=== PATIENT | male | born 1965 | race Caucasian/White ===

== ENCOUNTER 2016-07-28 15:33 | Inpatient (IN) | payer BC ==
[~2016-07-28] VITALS: Ht 188 cm; Wt 148.8 kg
[2016-07-28] MEDS ORDERED: ASPIRIN 81 MG TAB.CHEW PO ONE (16:00)
--- NOTE | 2016-07-28 16:00 | EKG ---
[facility] [address] [place] [address] Test Date: 2016-07-28 Test Time: 15:55:58 Pat Name: VICK CARR Department: Room: Gender: M Market Research Coordinator: : 1965 Requested By: STAFF NON Order Number: [id number] Reading MD: Measurements Intervals [place] Rate: 96 P: 34 MN: 170 QRS: 45 QRSD: 96 T: 54 QT: 360 QTc: 462 Interpretive Statements SINUS RHYTHM QRS(T) CONTOUR ABNORMALITY CONSIDER INFERIOR MYOCARDIAL DAMAGE POSSIBLY ABNORMAL ECG RI6.01 No previous ECG available for comparison
--- NOTE | 2016-07-28 16:18 | RAD ---
Portable AP upright view CXR: Clinical indications: Chest pain. Findings: A small granuloma of the right upper lobe is seen. No acute lung infiltrate or pleural effusion or pulmonary edema or lung mass or pneumothorax is seen. The heart size, pulmonary vasculature, mediastinum and both chelo are unremarkable. Impression: No acute radiographic abnormality is seen.
[2016-07-28 16:20] LABS: BASO # 0.1 x10^3/uL (0.0-0.2); BASO % 1 % (0-3); EOS % 3 % (0-3); HEMATOCRIT 43.2 % (39.0-53.0); HEMOGLOBIN 14.6 g/dL (13.0-17.5); LYMPH # 2.9 x10^3/uL (1.0-4.8); LYMPH % 32 % (24-48); MEAN CORPUSCULAR HEMOGLOBIN 29 pg (25-35); MEAN CORPUSCULAR HGB CONC 34 g/dL (31-37); MEAN CORPUSCULAR VOLUME 86 fL (79-100); MONO % 5 % (0-9); NEUT % 59 % (31-73); PLATELET COUNT 172 x10^3/uL (140-400); RED BLOOD COUNT 5.04 x10^6/uL (4.30-5.70); RED CELL DISTRIBUTION WIDTH 14.5 % (11.5-14.5); WHITE BLOOD COUNT 9.2 x10^3/uL (4.0-11.0)
[2016-07-28 16:31] LABS: CALCIUM 8.6 mg/dL (8.5-10.1); CREATININE 0.9 mg/dL (0.7-1.3); GFR 89.3; INR 2.5 (0.8-1.1); POTASSIUM 3.6 mmol/L (3.5-5.1); PROTHROMBIN TIME PATIENT 25.8 SEC (11.7-14.0)
[2016-07-28 16:37] LABS: ALBUMIN 3.3 g/dL (3.4-5.0); DIRECT BILIRUBIN 0.1 mg/dL (0.0-0.2); MAGNESIUM 1.9 mg/dL (1.8-2.4); TOTAL BILIRUBIN 0.3 mg/dL (0.2-1.0); TOTAL PROTEIN 7.3 g/dL (6.4-8.2)
[2016-07-28 16:54] LABS: CKMB INDEX 1.5 % (0-4); CKMB MASS 4.6 ng/mL (0.0-3.6)
--- NOTE | 2016-07-28 17:59 | PHYS DOC ---
Past Medical History Past Medical History: DVT, High Cholesterol, Hypertension, Other Additional Past Medical Histor: protein S deficiency, PE's, cat scratch fever Past Surgical History: Tonsillectomy Alcohol Use: None Drug Use: None Adult General Chief Complaint Chief Complaint: chest pain HPI HPI Patient is a 51 year old male who drove himself to the ED from his primary care doctor's office with the complaint of chest pressure which occurred earlier today and is now gone. The patient was awake and headed to work this morning at 5 AM when he developed a pressure heaviness across the middle of his chest. Both of his arms seem like they just lost strength. This lasted a few hours, he did go ahead and go to work, then he ended up leaving work and he drove to Dr. Salas office. He works as a aircraft sheet metal mechanic. At this time, his chest pressure is gone. Patient has a history of protein S deficiency and blood clots. He takes warfarin 15 mg a day. He is treated for hypertension that sometimes he forgets to take his medicine. He takes it at night because it makes him dizzy. Negative diabetes. He does smoke. PCP Dr. Salas Review of Systems Review of Systems Constitutional: Denies fever or chills [] Eyes: Denies change in visual acuity, redness, or eye pain [] HENT: Denies nasal congestion or sore throat [] Respiratory: Denies cough or shortness of breath [] Cardiovascular: As in history of present illness GI: Denies abdominal pain, nausea, vomiting, bloody stools or diarrhea [] : Denies dysuria or hematuria [] Musculoskeletal: Denies back pain or joint pain [] Integument: Denies rash or skin lesions [] Neurologic: Denies headache, focal weakness or sensory changes [] Current Medications Current Medications Current Medications Medications (Trade) Dose Ordered Sig/Katharine Start Time Stop Time Status Last Admin Dose Admin Aspirin (Children'S Aspirin) 324 mg 1X ONCE 07/28/16 16:00 07/28/16 16:02 DC 07/28/16 16:18 324 MG Allergies Allergies Allergies Coded Allergies Type Severity Reaction Last Updated Verified No Known Drug Allergies 07/28/16 No Physical Exam Physical Exam Constitutional: Well developed, well nourished, no acute distress, non-toxic appearance. Alert, mentating normally, good color. HENT: Normocephalic, atraumatic, bilateral external ears normal, nose normal. [ ] Eyes: conjunctiva normal, no discharge. [] Neck: Normal range of motion, no stridor. [] Cardiovascular:Heart rate regular rhythm, no murmur [] Lungs & Thorax: Bilateral breath sounds clear to auscultation [] Abdomen: Bowel sounds normal, soft, no tenderness, no masses, no pulsatile masses. [] Skin: Warm, dry, no erythema, no rash. [] Extremities: No tenderness, no cyanosis, no clubbing, ROM intact, no edema. [] Neurologic: Alert and oriented X 3, normal motor function, normal sensory function, no focal deficits noted. [] Current Patient Data Vital Signs Vital Signs Date Time Temp Pulse Resp B/P Pulse Ox O2 Delivery O2 Flow Rate FiO2 07/28/16 15:55 99.1 95 24 158/83 98 Room Air 99.1 Lab Values Laboratory Tests Test 07/28/16 16:08 White Blood Count 9.2x10^3/uL (4.0-11.0) Red Blood Count 5.04x10^6/uL (4.30-5.70) Hemoglobin 14.6g/dL (13.0-17.5) Hematocrit 43.2% (39.0-53.0) Mean Corpuscular Volume 86fL (79-100) Mean Corpuscular Hemoglobin 29pg (25-35) Mean Corpuscular Hemoglobin Concent 34g/dL (31-37) Red Cell Distribution Width 14.5% (11.5-14.5) Platelet Count 172x10^3/uL (140-400) Neutrophils (%) (Auto) 59% (31-73) Lymphocytes (%) (Auto) 32% (24-48) Monocytes (%) (Auto) 5% (0-9) Eosinophils (%) (Auto) 3% (0-3) Basophils (%) (Auto) 1% (0-3) Neutrophils # (Auto) 5.5x10^3uL (1.8-7.7) Lymphocytes # (Auto) 2.9x10^3/uL (1.0-4.8) Monocytes # (Auto) 0.5x10^3/uL (0.0-1.1) Eosinophils # (Auto) 0.3x10^3/uL (0.0-0.7) Basophils # (Auto) 0.1x10^3/uL (0.0-0.2) Prothrombin Time 25.8SEC (11.7-14.0) H Prothrombin Time INR 2.5 (0.8-1.1) H Sodium Level 142mmol/L (136-145) Potassium Level 3.6mmol/L (3.5-5.1) Chloride Level 104mmol/L (98-107) Carbon Dioxide Level 30mmol/L (21-32) Anion Gap 8 (6-14) Blood Urea Nitrogen 13mg/dL (8-26) Creatinine 0.9mg/dL (0.7-1.3) Estimated GFR (Cockcroft-Gault) 89.3 Glucose Level 126mg/dL (70-99) H Calcium Level 8.6mg/dL (8.5-10.1) Magnesium Level 1.9mg/dL (1.8-2.4) Total Bilirubin 0.3mg/dL (0.2-1.0) Direct Bilirubin 0.1mg/dL (0.0-0.2) Aspartate Amino Transferase (AST) 43U/L (15-37) H Alanine Aminotransferase (ALT) 22U/L (16-63) Alkaline Phosphatase 81U/L (46-116) Creatine Kinase 306U/L (39-308) Creatine Kinase MB (Mass) 4.6ng/mL (0.0-3.6) H Creatine Kinase MB Relative Index 1.5% (0-4) Troponin I Quantitative 0.031ng/mL (0.000-0.055) NU-Dza-S-Type Natriuretic Peptide 590pg/mL (0-124) H Total Protein 7.3g/dL (6.4-8.2) Albumin 3.3g/dL (3.4-5.0) L Laboratory Tests 07/28/16 16:08 Laboratory Tests 07/28/16 16:08 EKG EKG 12-lead EKG read by me. Sinus rhythm. Heart rate 96. There are no acute ST or T wave changes indicative of ischemia or infarction. No STEMI. 1555 I also reviewed EKG sent from Dr. Salas office with the patient. One is an old EKG dated 03/31/2016. Sinus rhythm. Heart rate 83. Normal EKG without ST or T wave changes. The second is an EKG from today, at 1401 hrs. Sinus rhythm. There are no acute ST or T wave changes indicative of ischemia or infarction. No STEMI. Believe today's office EKG shows significant cardiac ischemia. [] Radiology/Procedures Radiology/Procedures One view portable chest x-ray read by the radiologist. No acute abnormality. [] Course & Med Decision Making Course & Med Decision Making Pertinent Labs and Imaging studies reviewed. (See chart for details) 51-year-old male who has hypertension and is a smoker presents with chest heaviness earlier today that sounds very concerning for possible angina. The patient is symptom-free on arrival to the ED. I advised the patient that he does need to be hospitalized for further cardiac evaluation and he is agreeable to that plan. EKG, chest x-ray, and labs were initiated. Note the patient also has protein S deficiency and takes warfarin daily for that. I believe that's unrelated to his presentation. The patient remained stable in the ED. I discussed the case with Dr. burnham, [facility], who will admit the patient. I wrote bridge orders. [] Dragon Disclaimer Dragon Disclaimer This electronic medical record was generated, in whole or in part, using a voice recognition dictation system. Departure Departure Impression: Primary Impression: Chest pain Disposition: 09 ADMITTED INPATIENT Admitting Physician: Ashley Burnham Condition: STABLE Referrals: JANEEN SALAS MD (PCP) SEBASTIEN RUBIO MD Jul 28, 2016 17:59
[2016-07-28 19:30] VITALS: BP 133/73
[2016-07-28] MEDS ORDERED: POTASSIUM CHLORIDE 20 MEQ TABLET.ER. PO ONE (19:30)
[2016-07-28] MEDS ORDERED: NICOTINE 14MG PATCH. TD PRN (19:45)
[2016-07-28] MEDS ORDERED: IBUPROFEN 800 MG TABLET. PO PRN (19:45)
[2016-07-28] MEDS ORDERED: TRAMADOL 50 MG TABLET. PO PRN (19:45)
[2016-07-28] MEDS ORDERED: NICOTINE POLACRILEX 2MG GUM PACKAGE of 12. BC PRN (19:45)
--- NOTE | 2016-07-28 19:47 | PDOC1 ---
History and Physical Date of Admission Date of Admission DATE: 07/28/16 TIME: 19:40 History of Present Illness History of Present Illness Mr. Dunn is a 51 year old male admit from ED for chest pressure and left arm numbness and weakness sent to ER by Dr. Bosch for above symptoms. 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 Cardiovascular: No pertinent hx, HTN GI: No pertinent hx Heme/Onc: No pertinent hx Past Surgical History Past Surgical History: No pertinent history Family History Family History: No Significant Social History Smoke: <1 pack per day ALCOHOL: none Drugs: None Current Problem List Problem List Problems Medical Problems: (1) Chest pain Status: Acute Problems: Current Medications Current Medications Current Medications Aspirin (Children'S Aspirin) 324 mg 1X ONCE PO Last administered on 07/28/16t 16:18; Start 07/28/16 at 16:00; Stop 07/28/16 at 16:02; Status DC Allergies Allergies: Coded Allergies: No Known Drug Allergies (Unverified , 07/28/16) ROS General: No: Appetite, Chills, Fatigue, Malaise, Night Sweats, Other PSYCHOLOGICAL ROS: No: Anxiety, Behavioral Disorder, Concentration difficultie , Decreased libido, Depression, Disorientation, Hallucinations, Hostility, Irritablity, Memory difficulties, Mood Swings, Obsessive thoughts, Other, Physical abuse, Sexual abuse, Sleep disturbances, Suicidal ideation Eyes: No Blurry vision, No Decreased vision, No Double vision, No Dry eyes, No Excessive tearing, No Eye Pain, No Itchy Eyes, No Loss of vision, No Other, No Photophobia, No Scotomata, No Uses contacts, No Uses glasses HEENT: No: Epistaxis, Heacaches, Hearing change, Nasal congestion, Nasal discharge, Oral lesions, Other, Sinus pain, Sneezing, Snoring, Sore Throat, Tinnitus, Vertigo, Visual Changes, Vocal changes Respiratory: No: Cough, Hemoptysis, Orthopnea, Other, Pleuritic Pain, SOB with excertion, Shortness of breath, Sputum Changes, Stridor, Tachypnea, Wheezing Cardiovascular: yes Other (pressure, ), No Chest Pain, No Edema, No Lt Headedness, No Orthopnea, No Palpitations, No Paroxysmal Noc. Dyspnea Gastrointestinal: No Abdominal Pain, No Constipation, No Diarrhea, No Hematochezia, No Melena, No Nausea, No Other, No Vomiting Genitourinary: No , No , No , No , No , No , No , No Discharge, No Dysuria, No Flank Pain, No Frequency, No Hematuria, No Incontinence, No Other, No Pain, No Retention, No Urgency Musculoskeletal: No Gait Disturbance, No Joint Pain, No Joint Stiffness, No Joint Swelling, No Muscle Pain, No Muscular Weakness, No Other, No Pain In:, No Swelling In: Neurological: No Behavorial Changes, No Bowel/Bladder ControlChng, No Confusion , No Dizziness, No Gait Disturbance, No Headaches, No Impaired Coord/balance, No Memory Loss, No Numbness/Tingling, No Other, No Seizures, No Speech Problems , No Tremors, No Visual Changes, No Weakness Physical Exam General: Alert, Oriented X3, Cooperative, No acute distress HEENT: Atraumatic, PERRLA, EOMI Lungs: Clear to auscultation, Normal air movement Heart: S1S2, no murmurs Abdomen: Normal bowel sounds, Soft Extremities: No clubbing Skin: No rashes, No breakdown, Other (sclerotic lesions to elbow and knee, ) Neuro: Normal gait, Normal speech, Normal tone, Sensation intact Psych/Mental Status: Mood NL Vitals Vitals Vital Signs Date Time Temp Pulse Resp B/P Pulse Ox O2 Delivery O2 Flow Rate FiO2 07/28/16 18:27 94 24 164/82 96 Room Air 07/28/16 15:55 99.1 99.1 Labs Labs Laboratory Tests Test 07/28/16 16:08 White Blood Count 9.2x10^3/uL (4.0-11.0) Red Blood Count 5.04x10^6/uL (4.30-5.70) Hemoglobin 14.6g/dL (13.0-17.5) Hematocrit 43.2% (39.0-53.0) Mean Corpuscular Volume 86fL (79-100) Mean Corpuscular Hemoglobin 29pg (25-35) Mean Corpuscular Hemoglobin Concent 34g/dL (31-37) Red Cell Distribution Width 14.5% (11.5-14.5) Platelet Count 172x10^3/uL (140-400) Neutrophils (%) (Auto) 59% (31-73) Lymphocytes (%) (Auto) 32% (24-48) Monocytes (%) (Auto) 5% (0-9) Eosinophils (%) (Auto) 3% (0-3) Basophils (%) (Auto) 1% (0-3) Neutrophils # (Auto) 5.5x10^3uL (1.8-7.7) Lymphocytes # (Auto) 2.9x10^3/uL (1.0-4.8) Monocytes # (Auto) 0.5x10^3/uL (0.0-1.1) Eosinophils # (Auto) 0.3x10^3/uL (0.0-0.7) Basophils # (Auto) 0.1x10^3/uL (0.0-0.2) Prothrombin Time 25.8SEC (11.7-14.0) Prothromb Time International Ratio 2.5 (0.8-1.1) Sodium Level 142mmol/L (136-145) Potassium Level 3.6mmol/L (3.5-5.1) Chloride Level 104mmol/L (98-107) Carbon Dioxide Level 30mmol/L (21-32) Anion Gap 8 (6-14) Blood Urea Nitrogen 13mg/dL (8-26) Creatinine 0.9mg/dL (0.7-1.3) Estimated GFR (Cockcroft-Gault) 89.3 Glucose Level 126mg/dL (70-99) Calcium Level 8.6mg/dL (8.5-10.1) Magnesium Level 1.9mg/dL (1.8-2.4) Total Bilirubin 0.3mg/dL (0.2-1.0) Direct Bilirubin 0.1mg/dL (0.0-0.2) Aspartate Amino Transf (AST/SGOT) 43U/L (15-37) Alanine Aminotransferase (ALT/SGPT) 22U/L (16-63) Alkaline Phosphatase 81U/L (46-116) Creatine Kinase 306U/L (39-308) Creatine Kinase MB (Mass) 4.6ng/mL (0.0-3.6) Creatine Kinase MB Relative Index 1.5% (0-4) Troponin I Quantitative 0.031ng/mL (0.000-0.055) UP-Rju-A-Type Natriuretic Peptide 590pg/mL (0-124) Total Protein 7.3g/dL (6.4-8.2) Albumin 3.3g/dL (3.4-5.0) Laboratory Tests Test 07/28/16 16:08 White Blood Count 9.2x10^3/uL (4.0-11.0) Red Blood Count 5.04x10^6/uL (4.30-5.70) Hemoglobin 14.6g/dL (13.0-17.5) Hematocrit 43.2% (39.0-53.0) Mean Corpuscular Volume 86fL (79-100) Mean Corpuscular Hemoglobin 29pg (25-35) Mean Corpuscular Hemoglobin Concent 34g/dL (31-37) Red Cell Distribution Width 14.5% (11.5-14.5) Platelet Count 172x10^3/uL (140-400) Neutrophils (%) (Auto) 59% (31-73) Lymphocytes (%) (Auto) 32% (24-48) Monocytes (%) (Auto) 5% (0-9) Eosinophils (%) (Auto) 3% (0-3) Basophils (%) (Auto) 1% (0-3) Neutrophils # (Auto) 5.5x10^3uL (1.8-7.7) Lymphocytes # (Auto) 2.9x10^3/uL (1.0-4.8) Monocytes # (Auto) 0.5x10^3/uL (0.0-1.1) Eosinophils # (Auto) 0.3x10^3/uL (0.0-0.7) Basophils # (Auto) 0.1x10^3/uL (0.0-0.2) Prothrombin Time 25.8SEC (11.7-14.0) Prothromb Time International Ratio 2.5 (0.8-1.1) Sodium Level 142mmol/L (136-145) Potassium Level 3.6mmol/L (3.5-5.1) Chloride Level 104mmol/L (98-107) Carbon Dioxide Level 30mmol/L (21-32) Anion Gap 8 (6-14) Blood Urea Nitrogen 13mg/dL (8-26) Creatinine 0.9mg/dL (0.7-1.3) Estimated GFR (Cockcroft-Gault) 89.3 Glucose Level 126mg/dL (70-99) Calcium Level 8.6mg/dL (8.5-10.1) Magnesium Level 1.9mg/dL (1.8-2.4) Total Bilirubin 0.3mg/dL (0.2-1.0) Direct Bilirubin 0.1mg/dL (0.0-0.2) Aspartate Amino Transf (AST/SGOT) 43U/L (15-37) Alanine Aminotransferase (ALT/SGPT) 22U/L (16-63) Alkaline Phosphatase 81U/L (46-116) Creatine Kinase 306U/L (39-308) Creatine Kinase MB (Mass) 4.6ng/mL (0.0-3.6) Creatine Kinase MB Relative Index 1.5% (0-4) Troponin I Quantitative 0.031ng/mL (0.000-0.055) RB-Gfn-F-Type Natriuretic Peptide 590pg/mL (0-124) Total Protein 7.3g/dL (6.4-8.2) Albumin 3.3g/dL (3.4-5.0) VTE Prophylaxis Ordered VTE Prophylaxis Devices: No VTE Pharmacological Prophylaxi: Yes Assessment/Plan Assessment/Plan Chest pressure, left arm symptoms, angina, acute R./o ACS, check lipdis Hx DVt, coagulopathy, protein S deficient, coumadin 15mg daily, INR 2.5 htn, he is unsure of what BP med he takes at home obesity, BMI 43 tobaccoism, benefit of cessation skin lesions, consult road advisor for possible enzyme debridement MANI REINOSO MD Jul 28, 2016 19:47
[2016-07-28] MEDS ORDERED: IBUP-1060 PO (20:08)
[2016-07-28] MEDS ORDERED: LISI1TAB5 PO (20:08)
[2016-07-28] MEDS ORDERED: WARF10TA PO (20:08)
[2016-07-28] MEDS: MINERAL OIL/PETROLATUM TOPICAL CREAM 113GM JAR. TP SCH (21:12)
[2016-07-28] MEDS: METOPROLOL TART IMMED RELEASE 25 MG TABLET PO SCH (21:17)
[2016-07-28] MEDS: WARFARIN 5 MG TABLET. PO SCH (21:18)
--- NOTE | 2016-07-28 22:19 | ACF ---
Admission Forms Criteria CHEST PAIN Clinical Indications for Admission to Inpatient Care (Place 'X' for any and all applicable criteria): Admission is indicated for chest pain and ANY ONE of the following(1)(2)(3)(4)(5 ): [X]I. Angina with acute coronary syndrome (Also use Myocardial Infarction or Angina guideline) [ ]II. Hemodynamic instability [ ]III. Angina needing acute intervention as indicated by ALL of the following( 11)(12): [ ]a) Unstable angina is present as indicated by angina that is ANY ONE of the following: [ ]i) New onset [ ]ii) Nocturnal [ ]iii) Prolonged at rest [ ]iv) Progressive [ ]b) Angina warrants acute intervention as indicated by ANY ONE of the following: [ ]i) Recurrent angina (e.g, not responding as previously to treatment) [ ]ii) Angina at rest or with low-level activities despite initial medical therapy [ ]iii) New or presumably new ST-segment depression on ECG [ ]iv) Signs or symptoms of heart failure (eg, dyspnea, pulmonary edema) [ ]v) New or worsening mitral regurgitation [ ]vi) Hemodynamic instability [ ]vii) Dangerous arrhythmia (eg, sustained ventricular tachycardia) [ ]viii) History of percutaneous coronary intervention within 6 months [ ]ix) History of coronary artery bypass graft surgery [ ]x) [place] risk score of 2 or greater[A] [ ]xi) History of Diabetes(14) [ ]xii) High-risk cardiac ischemia findings on noninvasive testing (e.g, echocardiogram, treadmill testing, nuclear scan) [ ]xiii) Chronic renal insufficiency (ie, estimated GFR less than 60 mL/min/1.732m) [ ]xiv) Left ventricular ejection fraction less than 40% [ ]IV. Evidence of WI (eg, cardiac biomarkers positive, ST-segment elevation on ECG) also use Myocardial Infarction Criteria Form. [ ]V. Pulmonary edema [ ]. Respiratory distress [ ]VII. Chest pain indicative of serious diagnosis other than coronary artery disease (eg, aortic dissection) [ ]VIII. Contraindications and/or Inappropriate clinical situations for Observational Care in patients with Chest Pain, when ANY ONE of the following is required: [ ]a) Patient with risk factor for pulmonary embolism, acute coronary syndrome and myocardial infarction (18) [ ]b) Patient with Pulmonary embolism require an average LOS of 4.3 days, therefore emergency department observation management is inappropriate 18,23 [ ]c) Painful condition/s in the elderly, have the highest rate of recidivism after emergency department observation management (10.8%) 20,21,22 [ ]d) Elevated cardiac biomarker requires intensive and exhaustive care (19) [ ]IX. General contraindications and/or Inappropriate clinical situations for Observational Care in patients with Chest Pain, when ANY ONE of the following is required: [ ]a) Prediction of prolongation of LOS based on ANY ONE of the following may be considered as a contraindication for observational care 2, 3, 4, 5, 6, 7, 8, 9, 10, 11 [ ]i) Age > 65 yrs. [ ]ii) Patient arriving by ambulance [ ]iii) Patient with high acuity [ ]iv) Patient requiring vital sign monitoring [ ]v) Patient on IV medication [ ]b) Systolic blood pressures 180mmHg 3,12 [ ]c) Patient with altered mental status including delirium and other alteration of consciousness, (3) [ ]d) Patient whose discharge disposition will be to a group home home or rehabilitation home should not be managed in Emergency Department Observation Unit. CMS rule requires 3 days hospital stay before such placement. 3,13 [ ]e) Patient with failure to thrive due to broad array of etiologies 3,16,17 [ ]f) Inability to ambulate 3,14 Extended stay beyond goal length of stay may be needed for (1)(28): [ ]a) Specific condition diagnosed after evaluation (eg, pulmonary embolism, aortic dissection) [ ]b) Unstable angina [ ]c) Continued suspicion of acute coronary syndrome with inability to complete needed cardiac evaluation (eg, patient clinically unable to undergo stress testing) [ ]d) Myocardial infarction (Contents from ANGINA and CHEST PAIN clinical indications for admission to inpatient care have been integrated in this form) The original [employer] [employer] content created by [employer] has been revised. The portions of the content which have been revised are identified through the use of italic text or in bold, and [employer] [facility] has neither reviewed nor approved the modified material. All other unmodified content is copyright [employer] [employer] Please see references footnoted in the original [facility] [employer] edition 2016 Admission Criteria Met?: Yes MARTIN CHOW Jul 28, 2016 22:19
[2016-07-28 23:00] VITALS: BP 171/99
[2016-07-29 04:00] VITALS: BP 196/106
[2016-07-29] MEDS: METOPROLOL TART IMMED RELEASE 25 MG TABLET PO SCH (05:03)
[2016-07-29 05:58] LABS: BASO # 0.1 x10^3/uL (0.0-0.2); BASO % 1 % (0-3); EOS % 3 % (0-3); LYMPH # 2.2 x10^3/uL (1.0-4.8); LYMPH % 27 % (24-48); MEAN CORPUSCULAR HEMOGLOBIN 28 pg (25-35); MEAN CORPUSCULAR HGB CONC 33 g/dL (31-37); MEAN CORPUSCULAR VOLUME 85 fL (79-100); MONO % 6 % (0-9); NEUT % 64 % (31-73); PLATELET COUNT 151 x10^3/uL (140-400); RED BLOOD COUNT 4.92 x10^6/uL (4.30-5.70); RED CELL DISTRIBUTION WIDTH 14.7 % (11.5-14.5); WHITE BLOOD COUNT 8.3 x10^3/uL (4.0-11.0)
[2016-07-29] MEDS ORDERED: HYDROCHLOROTHIAZIDE 12.5 MG CAPSULE. PO ONE (06:00)
[2016-07-29] MEDS ORDERED: LISINOPRIL 20 MG TABLET PO ONE (06:00)
[2016-07-29 06:13] LABS: INR 2.4 (0.8-1.1); PROTHROMBIN TIME PATIENT 24.9 SEC (11.7-14.0)
[2016-07-29 06:23] LABS: ALBUMIN 3.2 g/dL (3.4-5.0); ALBUMIN/GLOBULIN RATIO 0.9 (1.0-1.7); CALCIUM 8.3 mg/dL (8.5-10.1); CHOLESTEROL/HDL RATIO 7.6; CREATININE 0.7 mg/dL (0.7-1.3); GFR 119.4; POTASSIUM 4.4 mmol/L (3.5-5.1); TOTAL BILIRUBIN 0.4 mg/dL (0.2-1.0); TOTAL PROTEIN 6.7 g/dL (6.4-8.2)
[2016-07-29 07:30] VITALS: BP 161/93
[2016-07-29] MEDS ORDERED: hydrALAZINE 20 MG/ML VIAL. IVP ONE (07:45)
[2016-07-29] MEDS ORDERED: NON FORMULARY ITEM (Lisinopril/Hydrochlorothiazide (Lisinopril-Hctz 20-12.5 Mg Tab) 1 TAB) PO SCH (09:00)
--- NOTE | 2016-07-29 09:18 | PDOC2 ---
ROYCE TALBERT PODIATRIST ASSISTANT 07/29/16 0918: CARDIAC CONSULT DATE OF CONSULT Date of Consult DATE: 07/29/16 TIME: 09:14 REASON FOR CONSULT Reason for Consult: Chest Pain REFERRING PHYSICIAN Referring Physician: Dr. Burgos SOURCE Source: Chart review, Patient HISTORY OF PRESENT ILLNESS HISTORY OF PRESENT ILLNESS This is a 51 yo male who presented with complaints of chest pressure. Patient reports he was driving to work yesterday morning and developed central chest pressure. Proceeded to work, pressure worsened and developed bilateral upper ext weakness, so he decided to go to Urgent Care at his PCP office. Was seen and sent to ED for further evaluation. No exacerbating or relieving factors. Symptoms resolved without intervention prior to arrival. Pressure associated with shortness of breath. Denies any palpitations, dizziness, diaphoresis, or nausea/vomiting. No recent illness or fevers. H/o of HTN and reports noncompliance with medications; may take 2 or 3 times per week. 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 No previous cardiac workup or cardiology evaluation. Additional h/o DEBBIE but does not use CPAP. O2 saturation dropped into 70's overnight and was placed on NC. PAST MEDICAL HISTORY Cardiovascular: HTN, Hyperlipidemia Pulmonary: Other (DEBBIE) CENTRAL NERVOUS SYSTEM: Other (no pertinent hx) GI: No pertinent hx Heme/Onc: No pertinent hx, Other (DVT) Hepatobiliary: No pertinent hx Psych: No pertinent hx Musculoskeletal: Osteoarthritis Infectious disease: No pertinent hx ENT: No pertinent hx Renal/: No pertinent hx Endocrine: No pertinent hx Dermatology: No pertinent hx PAST SURGICAL HISTORY Past Surgical History: Tonsillectomy FAMILY HISTORY Family History: Heart Disease, Other (protein S def) SOCIAL HISTORY Smoke: 1 pack per day ALCOHOL: none Drugs: None Lives: with Family CURRENT MEDICATIONS CURRENT MEDICATIONS Current Medications Medications (Trade) Dose Ordered Sig/Katharine Route PRN Reason Start Time Stop Time Status Last Admin Dose Admin Aspirin (Children'S Aspirin) 324 mg 1X ONCE PO 07/28/16 16:00 07/28/16 16:02 DC 07/28/16 16:18 Potassium Chloride (Klor-Con) 40 meq 1X ONCE PO 07/28/16 19:30 07/28/16 19:31 DC 07/28/16 21:17 Multi-Ingred Cream/Lotion/Oil/ Oint (Hydrocerin) 1 jony BID TP 07/28/16 21:00 07/28/16 21:12 Warfarin Sodium (Coumadin) 15 mg DAILY16 PO 07/28/16 20:00 07/28/16 21:18 Tramadol HCl (Ultram) 50 mg PRN Q6HRS PRN PO PAIN 07/28/16 19:45 07/29/16 05:03 Warfarin Sodium (Coumadin Per Physician) 1 each PRN DAILY PRN MC SEE COMMENTS 07/28/16 19:45 07/29/16 08:48 Metoprolol Tartrate (Lopressor) 25 mg BID PO 07/28/16 21:00 07/29/16 05:03 Hydrochlorothiazide (Microzide) 12.5 mg ONCE ONCE PO 07/29/16 06:00 07/29/16 06:01 DC 07/29/16 05:56 Lisinopril (Prinivil) 20 mg ONCE ONCE PO 07/29/16 06:00 07/29/16 06:01 DC 07/29/16 05:56 Hydralazine HCl (Apresoline) 10 mg 1X ONCE IVP 07/29/16 07:45 07/29/16 07:46 DC 07/29/16 07:59 ALLERGIES ALLERGIES: Coded Allergies: No Known Drug Allergies (Unverified , 07/28/16) ROS Review of System 14 point ROS conducted with pertinent positives noted above in HPI PHYSICAL EXAM General: Alert, Oriented X3, Cooperative HEENT: Atraumatic, Mucous membr. moist/pink Lungs: Clear to auscultation, Normal air movement Heart: Regular rate, Normal S1, Normal S2 Abdomen: Soft, No tenderness Extremities: Normal pulses, Other (1+ RLU edema ) Skin: No breakdown, No significant lesion Neuro: Normal speech, Sensation intact Psych/Mental Status: Mental status NL, Mood NL MUSCULOSKELETAL: Full range of motion without pain VITALS VITALS Vital Signs Date Time Temp Pulse Resp B/P Pulse Ox O2 Delivery O2 Flow Rate FiO2 07/29/16 07:59 70 186/108 07/29/16 07:30 97.5 97.5 07/29/16 04:00 16 99 Nasal Cannula 2.0 LABS Lab: Laboratory Tests Test 07/28/16 16:08 07/29/16 05:28 White Blood Count 9.2x10^3/uL (4.0-11.0) 8.3x10^3/uL (4.0-11.0) Red Blood Count 5.04x10^6/uL (4.30-5.70) 4.92x10^6/uL (4.30-5.70) Hemoglobin 14.6g/dL (13.0-17.5) 14.0g/dL (13.0-17.5) Hematocrit 43.2% (39.0-53.0) 42.0% (39.0-53.0) Mean Corpuscular Volume 86fL (79-100) 85fL (79-100) Mean Corpuscular Hemoglobin 29pg (25-35) 28pg (25-35) Mean Corpuscular Hemoglobin Concent 34g/dL (31-37) 33g/dL (31-37) Red Cell Distribution Width 14.5% (11.5-14.5) 14.7% (11.5-14.5) Platelet Count 172x10^3/uL (140-400) 151x10^3/uL (140-400) Neutrophils (%) (Auto) 59% (31-73) 64% (31-73) Lymphocytes (%) (Auto) 32% (24-48) 27% (24-48) Monocytes (%) (Auto) 5% (0-9) 6% (0-9) Eosinophils (%) (Auto) 3% (0-3) 3% (0-3) Basophils (%) (Auto) 1% (0-3) 1% (0-3) Neutrophils # (Auto) 5.5x10^3uL (1.8-7.7) 5.3x10^3uL (1.8-7.7) Lymphocytes # (Auto) 2.9x10^3/uL (1.0-4.8) 2.2x10^3/uL (1.0-4.8) Monocytes # (Auto) 0.5x10^3/uL (0.0-1.1) 0.5x10^3/uL (0.0-1.1) Eosinophils # (Auto) 0.3x10^3/uL (0.0-0.7) 0.2x10^3/uL (0.0-0.7) Basophils # (Auto) 0.1x10^3/uL (0.0-0.2) 0.1x10^3/uL (0.0-0.2) Prothrombin Time 25.8SEC (11.7-14.0) 24.9SEC (11.7-14.0) Prothromb Time International Ratio 2.5 (0.8-1.1) 2.4 (0.8-1.1) Sodium Level 142mmol/L (136-145) 141mmol/L (136-145) Potassium Level 3.6mmol/L (3.5-5.1) 4.4mmol/L (3.5-5.1) Chloride Level 104mmol/L (98-107) 104mmol/L (98-107) Carbon Dioxide Level 30mmol/L (21-32) 30mmol/L (21-32) Anion Gap 8 (6-14) 7 (6-14) Blood Urea Nitrogen 13mg/dL (8-26) 11mg/dL (8-26) Creatinine 0.9mg/dL (0.7-1.3) 0.7mg/dL (0.7-1.3) Estimated GFR (Cockcroft-Gault) 89.3 119.4 Glucose Level 126mg/dL (70-99) 112mg/dL (70-99) Calcium Level 8.6mg/dL (8.5-10.1) 8.3mg/dL (8.5-10.1) Magnesium Level 1.9mg/dL (1.8-2.4) Total Bilirubin 0.3mg/dL (0.2-1.0) 0.4mg/dL (0.2-1.0) Direct Bilirubin 0.1mg/dL (0.0-0.2) Aspartate Amino Transf (AST/SGOT) 43U/L (15-37) 43U/L (15-37) Alanine Aminotransferase (ALT/SGPT) 22U/L (16-63) 33U/L (16-63) Alkaline Phosphatase 81U/L (46-116) 76U/L (46-116) Creatine Kinase 306U/L (39-308) Creatine Kinase MB (Mass) 4.6ng/mL (0.0-3.6) Creatine Kinase MB Relative Index 1.5% (0-4) Troponin I Quantitative 0.031ng/mL (0.000-0.055) < 0.017ng/mL (0.000-0.055) ZA-Ajx-P-Type Natriuretic Peptide 590pg/mL (0-124) Total Protein 7.3g/dL (6.4-8.2) 6.7g/dL (6.4-8.2) Albumin 3.3g/dL (3.4-5.0) 3.2g/dL (3.4-5.0) BUN/Creatinine Ratio 16 (6-20) Albumin/Globulin Ratio 0.9 (1.0-1.7) Triglycerides Level 150mg/dL (0-150) Cholesterol Level 235mg/dL (0-200) LDL Cholesterol, Calculated 174mg/dL (0-100) VLDL Cholesterol, Calculated 30mg/dL (0-40) HDL Cholesterol 31mg/dL (40-60) Cholesterol/HDL Ratio 7.6 ASSESSMENT/PLAN ASSESSMENT/PLAN 1. Chest Pain troponin series normal- AMI ruled out suspect chest pressure is related to malignant HTN but given history and risk factors, will proceed with MPI to r/o underlying ischemia 2. Malignant hypertension remains elevated increase VIKI BB added hydralazine PRN Will need treatment of DEBBIE 3. Mild NT Pro BNP CXR without pleural fluid. No JVD no overt signs of HF maintain BP control 4. Hyperlipidemia LDL 174 add statin therapy 5. H/o DVT/PE with protein S def. on warfarin INR 2.4 6. DEBBIE needs outpatient sleep study per PCP 7. Noncompliance discussed importance of adherence Problems: STAR ORTIZ MD 07/29/16 1723: CARDIAC CONSULT ALLERGIES ALLERGIES: Coded Allergies: No Known Drug Allergies (Unverified , 07/28/16) ASSESSMENT/PLAN ASSESSMENT/PLAN Patient seen and examined. Agree with ONCOLOGY PATIENT NAVIGATOR's assessment and plan. Chest pain with some typical features. Myocardial infarction ruled out. 2-D echo showed normal LV function without any regional wall motion abnormalities. Lexiscan nuclear stress test (2 day protocol) pending. Titrate antihypertensives for better blood pressure control. Thank you for your consultation. Problems: ROYCE TALBERT APRN Jul 29, 2016 09:18 STAR ORTIZ MD Jul 29, 2016 17:23
[2016-07-29] MEDS ORDERED: LISINOPRIL 10 MG TABLET PO ONE (10:00)
[2016-07-29] MEDS: MINERAL OIL/PETROLATUM TOPICAL CREAM 113GM JAR. TP SCH ×2 (10:27→21:38)
[2016-07-29 10:30] VITALS: BP 152/75
[2016-07-29] MEDS ORDERED: REGADENOSON 0.4 MG/5 ML DISP.SYRIN. IV ONE (10:30)
[2016-07-29] MEDS ORDERED: hydrALAZINE 20 MG/ML VIAL. IVP PRN (10:30)
--- NOTE | 2016-07-29 10:33 | PDOC ---
PROGRESS NOTES Chief Complaint Chief Complaint A/P Chest pain R/O ACS HTN not controlled hx of DVT and PE Plan Stress test pending continue Coumadin prn hydralazine labs reviwed 2 days stress test d/w cardiology History of Present Illness History of Present Illness no chest pain no fever doing better no sob Vitals Vitals Vital Signs Date Time Temp Pulse Resp B/P Pulse Ox O2 Delivery O2 Flow Rate FiO2 07/29/16 10:26 76 151/86 07/29/16 07:30 97.5 97.5 07/29/16 07:30 20 98 Nasal Cannula 2.0 Physical Exam General: Alert, Oriented X3, Cooperative Heart: Regular rate Extremities: No cyanosis, Normal pulses, Other Skin: No rashes, No breakdown, No significant lesion Labs LABS Laboratory Tests Test 07/28/16 16:08 07/29/16 05:28 White Blood Count 9.2x10^3/uL (4.0-11.0) 8.3x10^3/uL (4.0-11.0) Red Blood Count 5.04x10^6/uL (4.30-5.70) 4.92x10^6/uL (4.30-5.70) Hemoglobin 14.6g/dL (13.0-17.5) 14.0g/dL (13.0-17.5) Hematocrit 43.2% (39.0-53.0) 42.0% (39.0-53.0) Mean Corpuscular Volume 86fL (79-100) 85fL (79-100) Mean Corpuscular Hemoglobin 29pg (25-35) 28pg (25-35) Mean Corpuscular Hemoglobin Concent 34g/dL (31-37) 33g/dL (31-37) Red Cell Distribution Width 14.5% (11.5-14.5) 14.7% (11.5-14.5) Platelet Count 172x10^3/uL (140-400) 151x10^3/uL (140-400) Neutrophils (%) (Auto) 59% (31-73) 64% (31-73) Lymphocytes (%) (Auto) 32% (24-48) 27% (24-48) Monocytes (%) (Auto) 5% (0-9) 6% (0-9) Eosinophils (%) (Auto) 3% (0-3) 3% (0-3) Basophils (%) (Auto) 1% (0-3) 1% (0-3) Neutrophils # (Auto) 5.5x10^3uL (1.8-7.7) 5.3x10^3uL (1.8-7.7) Lymphocytes # (Auto) 2.9x10^3/uL (1.0-4.8) 2.2x10^3/uL (1.0-4.8) Monocytes # (Auto) 0.5x10^3/uL (0.0-1.1) 0.5x10^3/uL (0.0-1.1) Eosinophils # (Auto) 0.3x10^3/uL (0.0-0.7) 0.2x10^3/uL (0.0-0.7) Basophils # (Auto) 0.1x10^3/uL (0.0-0.2) 0.1x10^3/uL (0.0-0.2) Prothrombin Time 25.8SEC (11.7-14.0) 24.9SEC (11.7-14.0) Prothromb Time International Ratio 2.5 (0.8-1.1) 2.4 (0.8-1.1) Sodium Level 142mmol/L (136-145) 141mmol/L (136-145) Potassium Level 3.6mmol/L (3.5-5.1) 4.4mmol/L (3.5-5.1) Chloride Level 104mmol/L (98-107) 104mmol/L (98-107) Carbon Dioxide Level 30mmol/L (21-32) 30mmol/L (21-32) Anion Gap 8 (6-14) 7 (6-14) Blood Urea Nitrogen 13mg/dL (8-26) 11mg/dL (8-26) Creatinine 0.9mg/dL (0.7-1.3) 0.7mg/dL (0.7-1.3) Estimated GFR (Cockcroft-Gault) 89.3 119.4 Glucose Level 126mg/dL (70-99) 112mg/dL (70-99) Calcium Level 8.6mg/dL (8.5-10.1) 8.3mg/dL (8.5-10.1) Magnesium Level 1.9mg/dL (1.8-2.4) Total Bilirubin 0.3mg/dL (0.2-1.0) 0.4mg/dL (0.2-1.0) Direct Bilirubin 0.1mg/dL (0.0-0.2) Aspartate Amino Transf (AST/SGOT) 43U/L (15-37) 43U/L (15-37) Alanine Aminotransferase (ALT/SGPT) 22U/L (16-63) 33U/L (16-63) Alkaline Phosphatase 81U/L (46-116) 76U/L (46-116) Creatine Kinase 306U/L (39-308) Creatine Kinase MB (Mass) 4.6ng/mL (0.0-3.6) Creatine Kinase MB Relative Index 1.5% (0-4) Troponin I Quantitative 0.031ng/mL (0.000-0.055) < 0.017ng/mL (0.000-0.055) MR-Ecf-T-Type Natriuretic Peptide 590pg/mL (0-124) Total Protein 7.3g/dL (6.4-8.2) 6.7g/dL (6.4-8.2) Albumin 3.3g/dL (3.4-5.0) 3.2g/dL (3.4-5.0) BUN/Creatinine Ratio 16 (6-20) Albumin/Globulin Ratio 0.9 (1.0-1.7) Triglycerides Level 150mg/dL (0-150) Cholesterol Level 235mg/dL (0-200) LDL Cholesterol, Calculated 174mg/dL (0-100) VLDL Cholesterol, Calculated 30mg/dL (0-40) HDL Cholesterol 31mg/dL (40-60) Cholesterol/HDL Ratio 7.6 Assessment and Plan Assessmemt and Plan Problems Medical Problems: (1) Chest pain Status: Acute Problems: Comment Review of Relevant I have reviewed the following items jaime (where applicable) has been applied. Labs Laboratory Tests Test 07/28/16 00:02 07/28/16 16:08 07/29/16 05:28 Troponin I Quantitative 0.023ng/mL (0.000-0.055) 0.031ng/mL (0.000-0.055) < 0.017ng/mL (0.000-0.055) White Blood Count 9.2x10^3/uL (4.0-11.0) 8.3x10^3/uL (4.0-11.0) Red Blood Count 5.04x10^6/uL (4.30-5.70) 4.92x10^6/uL (4.30-5.70) Hemoglobin 14.6g/dL (13.0-17.5) 14.0g/dL (13.0-17.5) Hematocrit 43.2% (39.0-53.0) 42.0% (39.0-53.0) Mean Corpuscular Volume 86fL (79-100) 85fL (79-100) Mean Corpuscular Hemoglobin 29pg (25-35) 28pg (25-35) Mean Corpuscular Hemoglobin Concent 34g/dL (31-37) 33g/dL (31-37) Red Cell Distribution Width 14.5% (11.5-14.5) 14.7% (11.5-14.5) Platelet Count 172x10^3/uL (140-400) 151x10^3/uL (140-400) Neutrophils (%) (Auto) 59% (31-73) 64% (31-73) Lymphocytes (%) (Auto) 32% (24-48) 27% (24-48) Monocytes (%) (Auto) 5% (0-9) 6% (0-9) Eosinophils (%) (Auto) 3% (0-3) 3% (0-3) Basophils (%) (Auto) 1% (0-3) 1% (0-3) Neutrophils # (Auto) 5.5x10^3uL (1.8-7.7) 5.3x10^3uL (1.8-7.7) Lymphocytes # (Auto) 2.9x10^3/uL (1.0-4.8) 2.2x10^3/uL (1.0-4.8) Monocytes # (Auto) 0.5x10^3/uL (0.0-1.1) 0.5x10^3/uL (0.0-1.1) Eosinophils # (Auto) 0.3x10^3/uL (0.0-0.7) 0.2x10^3/uL (0.0-0.7) Basophils # (Auto) 0.1x10^3/uL (0.0-0.2) 0.1x10^3/uL (0.0-0.2) Prothrombin Time 25.8SEC (11.7-14.0) 24.9SEC (11.7-14.0) Prothromb Time International Ratio 2.5 (0.8-1.1) 2.4 (0.8-1.1) Sodium Level 142mmol/L (136-145) 141mmol/L (136-145) Potassium Level 3.6mmol/L (3.5-5.1) 4.4mmol/L (3.5-5.1) Chloride Level 104mmol/L (98-107) 104mmol/L (98-107) Carbon Dioxide Level 30mmol/L (21-32) 30mmol/L (21-32) Anion Gap 8 (6-14) 7 (6-14) Blood Urea Nitrogen 13mg/dL (8-26) 11mg/dL (8-26) Creatinine 0.9mg/dL (0.7-1.3) 0.7mg/dL (0.7-1.3) Estimated GFR (Cockcroft-Gault) 89.3 119.4 Glucose Level 126mg/dL (70-99) 112mg/dL (70-99) Calcium Level 8.6mg/dL (8.5-10.1) 8.3mg/dL (8.5-10.1) Magnesium Level 1.9mg/dL (1.8-2.4) Total Bilirubin 0.3mg/dL (0.2-1.0) 0.4mg/dL (0.2-1.0) Direct Bilirubin 0.1mg/dL (0.0-0.2) Aspartate Amino Transf (AST/SGOT) 43U/L (15-37) 43U/L (15-37) Alanine Aminotransferase (ALT/SGPT) 22U/L (16-63) 33U/L (16-63) Alkaline Phosphatase 81U/L (46-116) 76U/L (46-116) Creatine Kinase 306U/L (39-308) Creatine Kinase MB (Mass) 4.6ng/mL (0.0-3.6) Creatine Kinase MB Relative Index 1.5% (0-4) OR-Odm-V-Type Natriuretic Peptide 590pg/mL (0-124) Total Protein 7.3g/dL (6.4-8.2) 6.7g/dL (6.4-8.2) Albumin 3.3g/dL (3.4-5.0) 3.2g/dL (3.4-5.0) BUN/Creatinine Ratio 16 (6-20) Albumin/Globulin Ratio 0.9 (1.0-1.7) Triglycerides Level 150mg/dL (0-150) Cholesterol Level 235mg/dL (0-200) LDL Cholesterol, Calculated 174mg/dL (0-100) VLDL Cholesterol, Calculated 30mg/dL (0-40) HDL Cholesterol 31mg/dL (40-60) Cholesterol/HDL Ratio 7.6 Laboratory Tests Test 07/28/16 16:08 07/29/16 05:28 White Blood Count 9.2x10^3/uL (4.0-11.0) 8.3x10^3/uL (4.0-11.0) Red Blood Count 5.04x10^6/uL (4.30-5.70) 4.92x10^6/uL (4.30-5.70) Hemoglobin 14.6g/dL (13.0-17.5) 14.0g/dL (13.0-17.5) Hematocrit 43.2% (39.0-53.0) 42.0% (39.0-53.0) Mean Corpuscular Volume 86fL (79-100) 85fL (79-100) Mean Corpuscular Hemoglobin 29pg (25-35) 28pg (25-35) Mean Corpuscular Hemoglobin Concent 34g/dL (31-37) 33g/dL (31-37) Red Cell Distribution Width 14.5% (11.5-14.5) 14.7% (11.5-14.5) Platelet Count 172x10^3/uL (140-400) 151x10^3/uL (140-400) Neutrophils (%) (Auto) 59% (31-73) 64% (31-73) Lymphocytes (%) (Auto) 32% (24-48) 27% (24-48) Monocytes (%) (Auto) 5% (0-9) 6% (0-9) Eosinophils (%) (Auto) 3% (0-3) 3% (0-3) Basophils (%) (Auto) 1% (0-3) 1% (0-3) Neutrophils # (Auto) 5.5x10^3uL (1.8-7.7) 5.3x10^3uL (1.8-7.7) Lymphocytes # (Auto) 2.9x10^3/uL (1.0-4.8) 2.2x10^3/uL (1.0-4.8) Monocytes # (Auto) 0.5x10^3/uL (0.0-1.1) 0.5x10^3/uL (0.0-1.1) Eosinophils # (Auto) 0.3x10^3/uL (0.0-0.7) 0.2x10^3/uL (0.0-0.7) Basophils # (Auto) 0.1x10^3/uL (0.0-0.2) 0.1x10^3/uL (0.0-0.2) Prothrombin Time 25.8SEC (11.7-14.0) 24.9SEC (11.7-14.0) Prothromb Time International Ratio 2.5 (0.8-1.1) 2.4 (0.8-1.1) Sodium Level 142mmol/L (136-145) 141mmol/L (136-145) Potassium Level 3.6mmol/L (3.5-5.1) 4.4mmol/L (3.5-5.1) Chloride Level 104mmol/L (98-107) 104mmol/L (98-107) Carbon Dioxide Level 30mmol/L (21-32) 30mmol/L (21-32) Anion Gap 8 (6-14) 7 (6-14) Blood Urea Nitrogen 13mg/dL (8-26) 11mg/dL (8-26) Creatinine 0.9mg/dL (0.7-1.3) 0.7mg/dL (0.7-1.3) Estimated GFR (Cockcroft-Gault) 89.3 119.4 Glucose Level 126mg/dL (70-99) 112mg/dL (70-99) Calcium Level 8.6mg/dL (8.5-10.1) 8.3mg/dL (8.5-10.1) Magnesium Level 1.9mg/dL (1.8-2.4) Total Bilirubin 0.3mg/dL (0.2-1.0) 0.4mg/dL (0.2-1.0) Direct Bilirubin 0.1mg/dL (0.0-0.2) Aspartate Amino Transf (AST/SGOT) 43U/L (15-37) 43U/L (15-37) Alanine Aminotransferase (ALT/SGPT) 22U/L (16-63) 33U/L (16-63) Alkaline Phosphatase 81U/L (46-116) 76U/L (46-116) Creatine Kinase 306U/L (39-308) Creatine Kinase MB (Mass) 4.6ng/mL (0.0-3.6) Creatine Kinase MB Relative Index 1.5% (0-4) Troponin I Quantitative 0.031ng/mL (0.000-0.055) < 0.017ng/mL (0.000-0.055) LW-Kca-S-Type Natriuretic Peptide 590pg/mL (0-124) Total Protein 7.3g/dL (6.4-8.2) 6.7g/dL (6.4-8.2) Albumin 3.3g/dL (3.4-5.0) 3.2g/dL (3.4-5.0) BUN/Creatinine Ratio 16 (6-20) Albumin/Globulin Ratio 0.9 (1.0-1.7) Triglycerides Level 150mg/dL (0-150) Cholesterol Level 235mg/dL (0-200) LDL Cholesterol, Calculated 174mg/dL (0-100) VLDL Cholesterol, Calculated 30mg/dL (0-40) HDL Cholesterol 31mg/dL (40-60) Cholesterol/HDL Ratio 7.6 Medications Current Medications Aspirin (Children'S Aspirin) 324 mg 1X ONCE PO Last administered on 07/28/16 16:18; Start 07/28/16 at 16:00; Stop 07/28/16 at 16:02; Status DC Potassium Chloride (Klor-Con) 40 meq 1X ONCE PO Last administered on 07/28/16 21:17; Start 07/28/16 at 19:30; Stop 07/28/16 at 19:31; Status DC Multi-Ingred Cream/Lotion/Oil/ Oint (Hydrocerin) 1 jony BID TP Last administered on 07/29/16 10:27; Start 07/28/16 at 21:00 Warfarin Sodium (Coumadin) 15 mg DAILY16 PO Last administered on 07/28/16 21:18 ; Start 07/28/16 at 20:00 Ibuprofen (Motrin) 800 mg PRN Q8HRS PRN PO INFLAMMATION; Start 07/28/16 at 19:45 Tramadol HCl (Ultram) 50 mg PRN Q6HRS PRN PO PAIN Last administered on 05:03; Start 07/28/16 at 19:45 Enoxaparin Sodium (Lovenox Per Pharmacy Prophylaxis Dosing) 1 each PRN DAILY PRN MC SEE COMMENTS; Start 07/28/16 at 19:45; Status UNV Warfarin Sodium (Coumadin Per Physician) 1 each PRN DAILY PRN MC SEE COMMENTS Last administered on 07/29/16 08:48; Start 07/28/16 at 19:45 Nicotine (Nicoderm Cq 14mg) 1 patch PRN DAILY PRN TD SMOKING CESSATION; Start 07/28/16 at 19:45 Nicotine Polacrilex (Nicorette Gum) 1 each PRN Q1HR PRN BC BREAKTHROUGH CRAVINGS; Start 07/28/16 at 19:45 Metoprolol Tartrate (Lopressor) 25 mg BID PO Last administered on 07/29/16 05: 03; Start 07/28/16 at 21:00 Non-Formulary Medication 1 tab DAILY PO ; Start 07/29/16 at 09:00; Status UNV Lisinopril (Prinivil) 20 mg DAILY PO ; Start 07/30/16 at 09:00; Stop 07/30/16 at 09:00; Status DC Hydrochlorothiazide (Microzide) 12.5 mg DAILY PO ; Start 07/30/16 at 09:00 Hydrochlorothiazide (Microzide) 12.5 mg ONCE ONCE PO Last administered on 05:56; Start 07/29/16 at 06:00; Stop 07/29/16 at 06:01; Status DC Lisinopril (Prinivil) 20 mg ONCE ONCE PO Last administered on 07/29/16 05:56; Start 07/29/16 at 06:00; Stop 07/29/16 at 06:01; Status DC Hydralazine HCl (Apresoline) 10 mg 1X ONCE IVP Last administered on 07/29/16 07:59; Start 07/29/16 at 07:45; Stop 07/29/16 at 07:46; Status DC Lisinopril (Prinivil) 40 mg QHS PO ; Start 07/29/16 at 21:00 Lisinopril (Prinivil) 20 mg 1X ONCE PO Last administered on 07/29/16 10:26; Start 07/29/16 at 10:00; Stop 07/29/16 at 10:02; Status DC Atorvastatin Calcium (Lipitor) 40 mg QHS PO ; Start 07/29/16 at 21:00 Active Scripts Active Reported Lisinopril-Hctz 20-12.5 Mg Tab (Lisinopril/Hydrochlorothiazide) 1 Each Tablet 1 Tab PO DAILY Ibuprofen 800 Mg Tablet 800 Mg PO DAILY PRN Coumadin (Warfarin Sodium) 10 Mg Tablet 1 Tab PO DAILY Vitals/I & O Vital Sign - Last 24 Hours 07/28/16 07/28/16 07/28/16 07/28/16 15:55 16:27 16:57 17:27 Temp 99.1 99.1 Pulse 95 94 94 96 Resp 24 24 24 24 B/P 158/83 150/79 170/82 157/78 Pulse Ox 98 96 96 96 O2 Delivery Room Air Room Air Room Air Room Air 07/28/16 07/28/16 07/28/16 07/28/16 18:27 19:30 21:17 21:56 Temp 98.2 98.2 Pulse 94 89 89 Resp 24 18 B/P 164/82 133/73 160/78 Pulse Ox 96 97 O2 Delivery Room Air Nasal Cannula Nasal Cannula O2 Flow Rate 2.0 2.0 07/28/16 07/29/16 07/29/16 07/29/16 23:00 04:00 05:03 05:56 Temp 98.5 98.6 98.5 98.6 Pulse 81 88 82 82 Resp 20 16 B/P 171/99 196/106 216/92 216/92 Pulse Ox 100 99 O2 Delivery Nasal Cannula Nasal Cannula O2 Flow Rate 2.0 2.0 07/29/16 07/29/16 07/29/16 07/29/16 07:30 07:30 07:59 10:26 Temp 97.5 97.5 97.5 97.5 Pulse 72 70 76 Resp 20 B/P 161/93 186/108 151/86 Pulse Ox 98 O2 Delivery Nasal Cannula O2 Flow Rate 2.0 Intake and Output 07/28/16 07/28/16 07/29/16 15:00 23:00 07:00 Intake Total 600 ml Balance 600 ml DE GALLEGOS MD Jul 29, 2016 10:33
--- NOTE | 2016-07-29 14:46 | CARD ---
APPROVED REPORT EXAM: Two-dimensional and M-mode echocardiogram with Doppler and color Doppler. Other Information Quality : LimitedHR: 75bpm Rhythm : NSR INDICATION Congestive Heart Failure RLE edema RISK FACTORS Hypertension Obesity 2D DIMENSIONS RVDd3.1 (2.9-3.5cm)Left Atrium(2D)4.0 (1.6-4.0cm) IVSd1.3 (0.7-1.1cm)Aortic Root(2D)3.6 (2.0-3.7cm) LVDd4.5 (3.9-5.9cm)LVOT Diameter2.3 (1.8-2.4cm) PWd1.3 (0.7-1.1cm)LVDs2.9 (2.5-4.0cm) FS (%) 34.8 %SV58.1 ml LVEF(%)64.2 (>50%) Aortic Valve AoV Peak Mychal.137.9cm/sAoV VTI23.9cm AO Peak GR.7.6mmHgLVOT Peak Mychal.95.3cm/s AO Mean GR.3mmHgAVA (VMAX)2.90cm2 Mitral Valve MV E Dqopyajr64.8cm/sMV E Peak Gr.3mmHg MV DECEL [id number] A Krtfngwl64.1cm/s MV E Mean Gr.2mmHgE/A Ratio0.9 MV A [id number] Pulmonary Valve PV Peak Npscqymf644.6cm/s Pulmonary Vein S1 Hexrnfoi97.9cm/sD2 Zoalanyo11.3cm/s PVa [id number] LEFT VENTRICLE The left ventricle is normal size. There is mild concentric left ventricular hypertrophy. The left ve ntricular systolic function is normal. The Ejection Fraction is 60-65%. There is normal LV segmental wall motion. Transmitral Doppler flow pattern is Grade I-abnormal relaxation pattern. RIGHT VENTRICLE The right ventricle is normal size. There is normal right ventricular wall thickness. The right ventr icular systolic function is normal. ATRIA The left atrium is mildly dilated. The right atrium size is normal. The interatrial septum is intact with no evidence for an atrial septal defect or patent foramen ovale as noted on 2-D or Doppler imagi ng. AORTIC VALVE The aortic valve is mildly thickened. Doppler and Color Flow revealed no significant aortic regurgita tion. There is no significant aortic valvular stenosis. MITRAL VALVE The mitral valve leaflets are thickened. There is no evidence of mitral valve prolapse. There is no m itral valve stenosis. Doppler and Color Flow revealed no mitral valve regurgitation noted. TRICUSPID VALVE The tricuspid valve is normal in structure and function. Doppler and Color Flow revealed no tricuspid valve regurgitation noted. PULMONIC VALVE The pulmonary valve is normal in structure and function. Doppler and Color Flow revealed no pulmonic valvular regurgitation. There is no pulmonic valvular stenosis. GREAT VESSELS The aortic root is normal in size. The ascending aorta is normal in size. The pulmonary artery is nor mal. The IVC is normal in size and collapses >50% with inspiration. PERICARDIAL EFFUSION There is no evidence of significant pericardial effusion. Critical Notification Critical Value: No <Conclusion> The left ventricular systolic function is normal. The Ejection Fraction is 60-65%. There is normal LV segmental wall motion. No significant valvular stenosis or regurgitation. Transmitral Doppler flow pattern is Grade I-abnormal relaxation pattern.
[2016-07-29 15:00] VITALS: BP 158/76
[2016-07-29] MEDS: WARFARIN 5 MG TABLET. PO SCH (15:53)
[2016-07-29 19:19] VITALS: BP 150/81
[2016-07-29] MEDS ORDERED: LISINOPRIL 20 MG TABLET PO SCH (21:00)
[2016-07-29] MEDS ORDERED: ATORVASTATIN CALCIUM 40 MG TABLET. PO SCH (21:00)
[2016-07-29] MEDS: METOPROLOL TART IMMED RELEASE 50 MG TABLET PO SCH (21:38)
[2016-07-29 23:36] VITALS: BP 157/92
[2016-07-30 03:01] VITALS: BP 176/102
[2016-07-30 07:22] VITALS: BP 144/60
[2016-07-30 07:59] VITALS: BP 157/102
[2016-07-30] MEDS: MINERAL OIL/PETROLATUM TOPICAL CREAM 113GM JAR. TP SCH (09:00)
[2016-07-30] MEDS ORDERED: LISINOPRIL 20 MG TABLET PO SCH (09:00)
[2016-07-30] MEDS ORDERED: HYDROCHLOROTHIAZIDE 12.5 MG CAPSULE. PO SCH (09:00)
[2016-07-30 11:50] VITALS: BP 150/90
[2016-07-30 12:19] VITALS: BP 157/102
[2016-07-30] MEDS: METOPROLOL TART IMMED RELEASE 50 MG TABLET PO SCH (12:19)
--- NOTE | 2016-07-30 12:27 | RAD ---
APPROVED REPORT Test Type: Pharmacological Stress Nurse/Tech: POP Vera RN Test Indications: Chest pain, SOA Cardiac History: see EHR Medications: see EHR Medical History: see EHR Resting ECG: SR Resting Heart Rate: 72 bpm Resting Blood Pressure: 109/63mmHg Pretest Chest Pain: No chest pain Nurse/Tech Notes Lungs CTA, heart tones WNL Consent: The procedure was explained to the patient in lay terms. Informed consent was witnessed. Ecotr eout was entered into [employer]. History and Stress Test performed by RT Heramn (R) (N) Pharm. Details Pharmacologic stress testing was performed using 0.4mg per 5ml of regadenoson given intravenously ove r 7-10 seconds. Stress Symptoms No chest pain or symptoms. POST EXERCISE Reason for Termination: Infusion complete Max HR: 88 bpm 61% of Maximum Predicted HR: 144 bpm Max Blood Pressure: 136/63mmHg Chest Pain: No. Arrhythmia: No. ST Change: No. INTERPRETATION Stress EKG Conclusion: No acute changes were noted. Imaging Protocol IMAGE PROTOCOL: Stress Tc-99m/rest Tc-99m 2 days Rest: Stress: Viability: Radiopharm.Tc99m [id number] Sestamibi [id number] 40mCi Duration 15min. 15min. Img Date 07/30/2016 07/29/2016 Inj-Img [id number]. 60min. Rest Admin Site:IV - Right ForearmAdministrator:RT Julita (R)(N) Stress Admin Site: IV - Right ForearmAdministrator: RT Herman (R)(N) STRESS DATA End Diast. Vol.211.0mlAv. Heart Rate83.0bpm End Syst. Vol.106.0mlCO Index BSA0.0L/min Myocardial Zeey714.0gEject. Yicibmoh54.0% Stress Rates Pk. Fill Rate2.21EDV/secLVtime Pk. Fill 105.14msec Pk. Empty Rate3.09ESV/secLVtime Pk. Fwojk125.40msec 06/22 Pk. Fill1.42EDV/sec Stress Scores Regional WT1.00Summed WT14.00 Regional WM0.00Summed WM5.00 LV Perfusion There is a small to moderate sized, mild in intensity darlyn-septal perfusion defect suggestive of im paired perfusion reserve without obvious ischemia. Wall Motion Low normal LV function. EF 55% LV Perf. Quant 17 Seg. SSS5.00 Stress Defect Extent (% LAD)12.50Rest Defect Extent (% LAD)Rev. Defect Extent (% LAD)0.00 Stress Defect Extent (% LCX) 0.00Rest Defect Extent (% LCX)Rev. Defect Extent (% LCX)0.00 Stress Defect Extent (% RCA)5.60Rest Defect Extent (% RCA)Rev. Defect Extent (% RCA)0.00 Stress Defect Extent (% BARTOLO)5.70Rest Defect Extent (% BARTOLO)Rev. Defect Extent (% BARTOLO)0.00 Other Information Quality:Average Risk Assessment: Low-Moderate Risk Conclusion 1. No evidence of stress-induced EKG changes. 2. Small to moderate sized mild septal defect without any obvious clear ischemia. 3. Low-normal LV systolic function. 4. Low to moderate risk study.
--- NOTE | 2016-07-30 13:34 | PDOC ---
ROYCE TALBERT APRN 07/30/16 1334: CARDIO Progress Notes Date and Time Date of Service 07/30/16 Time of Evaluation 1020 Subjective Subjective: No Chest Pain, No shortness of breath, No Palpitations, No Dizziness, Other (no complaints ) Vitals Vitals Vital Signs Date Time Temp Pulse Resp B/P Pulse Ox O2 Delivery O2 Flow Rate FiO2 07/30/16 12:19 67 157/102 07/30/16 08:55 Room Air 07/30/16 07:59 97.3 21 100 97.3 07/30/16 03:01 2.5 Weight Weight [ ] Input and Output Intake and Output Intake and Output 07/30/16 07:00 Intake Total 300 ml Balance 300 ml Intake Oral 300 ml Physical Exam HEENT: Neck Supple W Full Motion Chest: Symmetric LUNGS: Clear to Auscultation Heart: S1S2, RRR, no murmurs Extremities: No Calf Tenderness, Other (RLE 1+ edema ) Neurology: alert, oriented, follow commands Assessment Assessment 1. Chest Pain troponin series normal- AMI ruled out stable. CP free. no acute events overnight 2nd portion of MPI underway today 2. Malignant hypertension mildly elevated; BP meds held this morning for stress test will need f/u in 1-2 weeks for BP check 3. Hyperlipidemia LDL 174 statin therapy 4. 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 Noncompliance reinforced importance of adherence STAR ORTIZ MD 07/30/16 1838: CARDIO Progress Notes Assessment Assessment Patient seen and examined. Agree with LIFE MANAGER's assessment and plan. MPI did not show any significant ischemia. OK for DC from cardiac standpoint. ROYCE TALBERT APRN Jul 30, 2016 13:34 STAR ORTIZ MD Jul 30, 2016 18:38
[2016-07-30] MEDS ORDERED: METO50TA2 PO (14:21)
--- NOTE | 2016-07-31 01:27 | DS ---
DATE OF DISCHARGE: 07/30/2016 DISCHARGE DIAGNOSES: 1. Chest pain, likely due to uncontrolled blood pressure. ACS was ruled out. 2. Uncontrolled hypertension. 3. Hyperlipidemia. 4. Obesity, prior history of DVT, PE, INR therapeutic. 5. Noncompliance with medications. BRIEF HOSPITAL COURSE: A 51-year-old male patient presented to the ER with complaints of chest pain, described it as a chest pressure. Upon arrival, the patient's vitals were not stable. He was having uncontrolled blood pressure. His metoprolol has been added and currently his blood pressure is around 150 systolic. His 3 sets of troponins are negative and he had a 2-day nuclear stress test, which was negative and Cardiology cleared him to go home and follow up with primary care doctor. The patient's echocardiogram showed an LV ejection fraction 60-65% with grade 1 relaxation pattern. He has been educated to follow up with the primary care doctor and check his vitals to control the blood pressure. He did not show any signs of hypoxia, tachycardia, or shortness of breath. He is hemodynamically stable enough to go to his primary care doctor and to further work up for this chest pain. EXAM : Gen: alert and oriented heart: S1, S2 present Lungs: clear Abdomen: soft and non tender Ext: no edema Disposition: home Medications: Pl see MRAD Total time: 34 minutes spent for discharge, exam, coordination of care and counselling. DE GALLEGOS MD DR: FERCHO/damon JOB#: [id number] / [id number] CATRACHITA
== END 2016-07-30 15:30 | disposition home or self-care (01) | DRG 305 ==
LOC: ER 15:33 → 2 NORTH 17:50
PROVIDERS: ADMIT Internal Medicine; ATTEND Internal Medicine
DX: I10 Essential (primary) hypertension (principal); D68.59 Other primary thrombophilia; Z68.41 Body mass index [BMI] 40.0-44.9, adult; I20.8 Other forms of angina pectoris; E66.9 Obesity, unspecified; E78.00 Pure hypercholesterolemia, unspecified; E78.5 Hyperlipidemia, unspecified; F17.200 Nicotine dependence, unspecified, uncomplicated; G47.33 Obstructive sleep apnea (adult) (pediatric); L98.9 Disorder of the skin and subcutaneous tissue, unspecified; Z86.711 Personal history of pulmonary embolism; Z86.718 Personal history of other venous thrombosis and embolism; Z91.14 Patient's other noncompliance with medication regimen
CPT/HCPCS: 36415; 71010; 78452; 80048; 80053; 80061; 80076; 82553; 83735; 83880; 84484; 85027; 85610; 93005; 93017; 93306; 96374; 96375; 96376; A9500; J0360; J2785; 99285-25

== ENCOUNTER 2019-04-27 16:39 | Emergency (ER) | payer BC ==
[~2019-04-27] VITALS: Ht 188 cm; Wt 156.5 kg
[~2019-04-27 16:39] MED LIST: IBUP-1060 PO; LISI1TAB19 PO; METO50TA6 PO; WARF10TA45 PO
[2019-04-27 17:16] LABS: BASO # 0.1 x10^3/uL (0.0-0.2); BASO % 1 % (0-3); EOS # 0.4 x10^3/uL (0.0-0.7); EOS % 5 % (0-3); HEMATOCRIT 38.5 % (39.0-53.0); HEMOGLOBIN 13.3 g/dL (13.0-17.5); LYMPH % 26 % (24-48); MEAN CORPUSCULAR HEMOGLOBIN 30 pg (25-35); MEAN CORPUSCULAR HGB CONC 35 g/dL (31-37); MEAN CORPUSCULAR VOLUME 87 fL (79-100); MONO # 0.5 x10^3/uL (0.0-1.1); MONO % 6 % (0-9); NEUT # 4.9 x10^3/uL (1.8-7.7); NEUT % 63 % (31-73); PLATELET COUNT 188 x10^3/uL (140-400); RED BLOOD COUNT 4.42 x10^6/uL (4.30-5.70); RED CELL DISTRIBUTION WIDTH 13.6 % (11.5-14.5); WHITE BLOOD COUNT 7.8 x10^3/uL (4.0-11.0)
[2019-04-27 17:27] LABS: PROTHROMBIN TIME PATIENT 60.5 SEC (11.7-14.0)
[2019-04-27] MEDS ORDERED: LISINOPRIL 10 MG TABLET PO ONE (17:30)
--- NOTE | 2019-04-27 17:35 | PHYS DOC ---
Past Medical History Past Medical History: Arthritis, DVT, High Cholesterol, Hypertension, Other Additional Past Medical Histor: protein S deficiency, PE's, cat scratch fever Past Surgical History: Tonsillectomy Additional Information: 1 PK/DAY Alcohol Use: None Drug Use: None Adult General Chief Complaint Chief Complaint: ABNORMAL LABS HPI HPI Patient is a 53 year old male who presents to the emergency department with complaints of an elevated INR. Patient states that his primary care provider Dr. Hiro gupta told him to go to the ER his INR was 8. She denies any bleeding, headache, vision changes, blood in his urine, abdominal pain, nausea, vomiting, hemoptysis, shortness of breath, or chest pain. He denies any complaints at this time. Patient states that he already has a follow-up appointment with his doctor on Tuesday and was told that he just needed some vitamin K and to go to the ER because Dr. Bosch was not able to prescribe the medication due to a national drug shortage. Review of Systems Review of Systems Constitutional: Denies fever or chills [] Eyes: Denies change in visual acuity, redness, or eye pain [] HENT: Denies nasal congestion or sore throat [] Respiratory: Denies cough or shortness of breath [] Cardiovascular: No additional information not addressed in HPI [] GI: Denies abdominal pain, nausea, vomiting, bloody stools or diarrhea [] : Denies dysuria or hematuria [] Musculoskeletal: Denies back pain or joint pain [] Integument: Denies rash or skin lesions [] Neurologic: Denies headache, focal weakness or sensory changes [] Complete systems were reviewed and found to be within normal limits, except as documented in this note. Current Medications Current Medications Current Medications Medications (Trade) Dose Ordered Sig/Katharine Start Time Stop Time Status Last Admin Dose Admin Lisinopril (Prinivil) 5 mg 1X ONCE 04/27/19 17:30 04/27/19 17:31 DC 04/27/19 17:34 5 MG Phytonadione (Mephyton Oral Soln) 10 mg 1X ONCE 04/27/19 18:00 04/27/19 18:01 DC 04/27/19 17:38 10 MG Allergies Allergies Allergies Coded Allergies Type Severity Reaction Last Updated Verified No Known Drug Allergies 07/28/16 No Physical Exam Physical Exam Constitutional: Well developed, well nourished, no acute distress, non-toxic appearance, obese. [] HENT: Normocephalic, atraumatic, bilateral external ears normal, nose normal. [] Eyes: PERRLA, EOMI, conjunctiva normal, no discharge. [] Neck: Normal range of motion, no stridor. [] Cardiovascular:Heart rate regular rhythm Lungs & Thorax: Respirations even and unlabored, no retractions, no respiratory distress Skin: Warm, dry, no erythema, no rash. [] Back: No tenderness Extremities: No cyanosis, ROM intact, Neurologic: Alert and oriented X 3, no focal deficits noted. [] Psychologic: Affect normal, judgement normal, mood normal. [] Current Patient Data Vital Signs Vital Signs Date Time Temp Pulse Resp B/P (MAP) Pulse Ox O2 Delivery O2 Flow Rate FiO2 04/27/19 17:34 103 182/89 04/27/19 17:20 16 98 Room Air 04/27/19 16:50 98.5 98.5 Lab Values Laboratory Tests Test 04/27/19 17:03 White Blood Count 7.8 x10^3/uL (4.0-11.0) Red Blood Count 4.42 x10^6/uL (4.30-5.70) Hemoglobin 13.3 g/dL (13.0-17.5) Hematocrit 38.5 % (39.0-53.0) L Mean Corpuscular Volume 87 fL (79-100) Mean Corpuscular Hemoglobin 30 pg (25-35) Mean Corpuscular Hemoglobin Concent 35 g/dL (31-37) Red Cell Distribution Width 13.6 % (11.5-14.5) Platelet Count 188 x10^3/uL (140-400) Neutrophils (%) (Auto) 63 % (31-73) Lymphocytes (%) (Auto) 26 % (24-48) Monocytes (%) (Auto) 6 % (0-9) Eosinophils (%) (Auto) 5 % (0-3) H Basophils (%) (Auto) 1 % (0-3) Neutrophils # (Auto) 4.9 x10^3/uL (1.8-7.7) Lymphocytes # (Auto) 2.0 x10^3/uL (1.0-4.8) Monocytes # (Auto) 0.5 x10^3/uL (0.0-1.1) Eosinophils # (Auto) 0.4 x10^3/uL (0.0-0.7) Basophils # (Auto) 0.1 x10^3/uL (0.0-0.2) Prothrombin Time 60.5 SEC (11.7-14.0) H Prothrombin Time INR 6.9 (0.8-1.1) *H Activated Partial Thromboplast Time 81 SEC (24-38) H Sodium Level 138 mmol/L (136-145) Potassium Level 3.7 mmol/L (3.5-5.1) Chloride Level 102 mmol/L (98-107) Carbon Dioxide Level 31 mmol/L (21-32) Anion Gap 5 (6-14) L Blood Urea Nitrogen 12 mg/dL (8-26) Creatinine 0.8 mg/dL (0.7-1.3) Estimated GFR (Cockcroft-Gault) 101.5 BUN/Creatinine Ratio 15 (6-20) Glucose Level 142 mg/dL (70-99) H Calcium Level 8.5 mg/dL (8.5-10.1) Total Bilirubin 0.3 mg/dL (0.2-1.0) Aspartate Amino Transferase (AST) 58 U/L (15-37) H Alanine Aminotransferase (ALT) 40 U/L (16-63) Alkaline Phosphatase 84 U/L (46-116) Total Protein 7.0 g/dL (6.4-8.2) Albumin 3.3 g/dL (3.4-5.0) L Albumin/Globulin Ratio 0.9 (1.0-1.7) L Laboratory Tests 04/27/19 17:03 Laboratory Tests 04/27/19 17:03 EKG EKG [] Radiology/Procedures Radiology/Procedures [] Course & Med Decision Making Course & Med Decision Making Pertinent Labs and Imaging studies reviewed. (See chart for details) dx: Supratherapeutic INR CBC unremarkable, PTT 60.5, INR 6.9 Patient was given 5 mg of lisinopril in the emergency department for asymptomatic hypertension, patient stated he had not taken his lisinopril yet today. He was also given 10 mg of vitamin K by mouth. Patient instructed to hold his Coumadin for 2 days and follow-up with his primary care doctor on Tuesday as planned, return to the ER if symptoms worsen. Patient verbalized an understanding of home care, medications, follow-up, and return to ED instructions and was in agreement with the plan of care. Dragon Disclaimer Dragon Disclaimer This electronic medical record was generated, in whole or in part, using a voice recognition dictation system. Departure Departure Impression: Primary Impression: Supratherapeutic INR Disposition: HOME, SELF-CARE Condition: STABLE Referrals: JANEEN BOSCH MD (PCP) Patient Instructions: Bleeding Time Additional Instructions: Do not take your Coumadin for the next 2 days. Follow up with Dr. Bosch on Tuesday as planned. Your INR was 6.9 today in the ER NEFTALI ANDERSON [employer] Apr 27, 2019 17:35
[2019-04-27 17:36] LABS: CALCIUM 8.5 mg/dL (8.5-10.1); CREATININE 0.8 mg/dL (0.7-1.3); GFR 101.5; POTASSIUM 3.7 mmol/L (3.5-5.1)
[2019-04-27 17:41] LABS: ALBUMIN 3.3 g/dL (3.4-5.0); ALBUMIN/GLOBULIN RATIO 0.9 (1.0-1.7); TOTAL BILIRUBIN 0.3 mg/dL (0.2-1.0)
[2019-04-27 18:00] VITALS: BP 163/85
[2019-04-27] MEDS ORDERED: PHYTONADIONE 10 MG/ML ORAL SOLUTION. PO ONE (18:00)
== END 2019-04-27 18:18 | disposition home or self-care (01) ==
LOC: ER 16:39
DX: R79.1 Abnormal coagulation profile (principal); I10 Essential (primary) hypertension; E78.00 Pure hypercholesterolemia, unspecified; F17.200 Nicotine dependence, unspecified, uncomplicated; Z86.718 Personal history of other venous thrombosis and embolism
CPT/HCPCS: 36415; 80053; 85025; 85610; 85730; 99284